=== PATIENT | male | born 1965 | race Caucasian/White ===

== ENCOUNTER 2019-01-15 08:34 | Emergency (ER) | payer BC, SELFPAY ==
[2019-01-15 08:35] VITALS: BP 153/94; PULSE 76; RESP 15; TEMP 36.7; O2SAT 97; BMI 33.7
--- NOTE | 2019-01-15 08:44 | RAD_ITS ---
STUDY: X-RAY CHEST REASON FOR EXAM: Male, 53 years old. Chest pain and night sweats. TECHNIQUE: Single AP portable view of the chest. COMPARISON: None. FINDINGS: EKG electrodes are seen. The lungs are clear and expanded. There is no demonstrated pleural abnormality. Normal size heart. Normal mediastinum and yu. Normal visualized pulmonary arteries. Normal visualized aortic arch and descending thoracic aorta. There are mild degenerative changes of the visualized thoracic spine. Normal visualized ribs, clavicles, and shoulders. There is no demonstrated abnormality of the visualized soft tissue structures of the upper abdomen. RAD/Chest 1 View (Portable) IMPRESSION: Normal x-ray examination of the chest. Electronically Signed: Dread Franz, at 9:09 EDT , Service support ,
--- NOTE | 2019-01-15 08:45 | EKG12_ITS ---
Test Reason : CP Blood Pressure : / mmHG Vent. Rate : 074 BPM Atrial Rate : 074 BPM P-R Int : 158 ms QRS Dur : 086 ms QT Int : 354 ms P-R-T Axes : 034 041 027 degrees QTc Int : 392 ms Normal sinus rhythm with sinus arrhythmia Normal ECG Confirmed by JAIME BRUNSON, SURJIT ([id number]), graphic editor DANI DUFFY ([id number]) on 01/17/2019 10:22:08 A M Referred By: KEVIN/MUNA Confirmed By:EVON SANDOVAL MD
--- NOTE | 2019-01-15 08:46 | ED.VIS.GEN ---
History of Present Illness Chief Complaint: Chest Pain Detail of Chief Complaint: Shortness of breath, night sweats Informant: Patient Onset: Month(s) Narrative: Patient presents with a 1 month history or more of dyspnea on exertion and night sweats. He states he gets occasional chest pain and points to the center of the sternum. He has had some reflux. He recently had a CT scan of the chest. Report shows trace pericardial effusion and atherosclerotic disease of the thoracic aorta and possibly the LAD. He was concerned about these findings and presented to the emergency room. He does have a family history of cardiac disease and states his father had cardiac stents placed about the same age the patient is now. Patient did recently have bronchitis. He was a long-term smoker and quit 2 weeks ago when he got ill. He also admits to being a heavy drinker. Past Medical History - Allergies and Home Meds Allergies/Adverse Reactions: Allergies HAY FEVER Allergy (Uncoded 01/15/19 09:23) Other Primary Care Physician: Gibran Almeida MD [Primary Care Provider] - Prior records reviewed: Yes Past Medical History: - - Reviewed Lives: Spouse/ Significant Other Smoking Status: Former smoker - 2 weeks ago Alcohol: Heavy Review of Systems General: Denies: Chills, Fever Eyes: Denies: Visual changes - bilaterally ENT: Denies: Bilateral ear pain Cardiovascular: Reports: Chest pain. Denies: Palpitations, Heart racing Respiratory: Reports: Dyspnea. Denies: Cough Gastrointestinal: Reports: - - Reflux. Denies: Abdominal pain, Nausea, Vomiting Musculoskeletal: Denies: Back pain, Extremity Pain Skin: Denies: Rash Neurological: Denies: Headache Endocrine: Denies: Polyuria, Polydipsia Hematologic: Denies: Easy bruising Allergy: Denies: Uticaria Physical Exam Vital Signs/Narrative: Vital Signs Temp Pulse Resp BP Pulse Ox 01/15/19 08:35 98.0 F 76 15 153/94 H 97 Inital Vital Signs reviewed: Yes General: Well nourished, Well developed Head: Normocephalic ENT: Moist mucous membranes Cardiovascular: Regular rate, Regular rhythm Respiratory: No distress, CTA bilaterally Abdomen: Soft, Nontender, Hypoactive bowel sounds Extremities: Nontender Skin: Normal color, No rash Neurological: Alert, Oriented x3 Psychological: Normal affect Diagnostic/Tx/Re-eval Impressions Chest X-Ray 01/15/19 08:44 IMPRESSION: Normal x-ray examination of the chest. Electronically Signed: Dread Franz, at 9:09 EDT , Service support , 01/15/19 08:44 Chest 1 View (Portable) [RAD] Stat Laboratory Results 01/15/19 01/15/19 08:50 08:50 WBC 6.7 RBC 5.27 Hgb 16.6 H Hct 48.7 MCV 92.4 MCH 31.5 MCHC 34.1 RDW Std Deviation 42.9 RDW Coeff of Hortensia 12.5 Plt Count 205 MPV 9.6 Immature Gran % (Auto) 0.300 Neut % (Auto) 51.3 Lymph % (Auto) 34.1 [place] % (Auto) 7.4 Eos % (Auto) 5.7 H Baso % (Auto) 1.2 H Absolute Neuts (auto) 3.4 Absolute Lymphs (auto) 2.27 Nucleated RBC % 0 Sodium 139 Potassium 3.9 Chloride 107 Carbon Dioxide 26.0 Anion Gap 6 BUN 18 Creatinine 1.14 Estim Creat Clear Calc 79.15 Est GFR (MDRD) Af Amer 87 Est GFR (MDRD) Non-Af 72 BUN/Creatinine Ratio 15.8 Glucose 124 H Calcium 9.3 Troponin I < 0.015 - EKG Initial EKG Interpretation: Sinus Rhythm - Normal sinus rhythm with 74 bpm. No sign of acute ischemia. - Medical Decision Making Patient is resting comfortably on repeat evaluation. He has no pain currently. I will start the patient on something for reflux. I will speak with his primary care physician to help arrange outpatient stress test. I do not feel that this needs to be performed inpatient. Patient and family voiced understanding and agreement. ED Disposition - Plan for ED Patient: Disposition: Home or Assisted Living Diagnosis: Atypical chest pain Instructions: CHEST PAIN, Uncertain Cause, GERD (Adult) Prescriptions: Omeprazole [Prilosec] 20 mg PO DAILY #30 capsule Referrals: Gibran Almeida MD [Primary Care Provider] - As soon as possible
[2019-01-15 08:54] LABS: Absolute Lymphocyte Count 2.27 X10^3/uL (0.83-4.51); Absolute Neutrophil Count 3.4 X10^3/uL (2.0-7.7); Basophil# 0.08 X10^3/uL; Basophil% 1.2 % (0-1); Eosinophil# 0.38 X10^3/uL; Eosinophils% 5.7 % (0-5); Hematocrit 48.7 % (40-54); Hemoglobin 16.6 g/dL (13.0-16.5); Lymphocyte # 2.27 X10^3/ul (4.0); Lymphocyte % 34.1 % (19-41); Mean Corp Hgb Conc 34.1 g/dL (32-36); Mean Corpuscular Hgb 31.5 pg (27.0-32.0); Mean Corpuscular Volume 92.4 fL (80-94); Mean Platelet Vol. 9.6 fl (6.2-12.0); Monocyte# 0.49 X10^3/uL; Monocyte% 7.4 % (0-10); NRBC Flagged by Analyzer 0 % (0-5); Neutrophil # 3.41 X10^3/uL (2.7-7.7); Neutrophil % 51.3 % (47-70); Platelet Count 205 K/mm3 (150-450); RBC Distribution Width CV 12.5 % (11.6-14.6); RBC Distribution Width SD 42.9 fl (35.1-43.9); Red Blood Count 5.27 M/mm3 (4.6-6.2); White Blood Count 6.7 K/mm3 (4.4-11.0)
[2019-01-15 09:15] LABS: Anion Gap 6 (5-15); BUN 18 mg/dL (7-18); BUN/Creat Ratio 15.8 RATIO (10-20); Calcium,Total 9.3 mg/dL (8.5-10.1); Chloride 107 mmol/L (98-107); Creatinine, Serum 1.14 mg/dL (0.70-1.30); EST Glomerular Filtration Rate 72 mL/min (>60); Est Glom Filt Rate - Afr Amer 87 mL/min (>60); Estimated Creatinine Clearance 79.15 ml/min; Glucose 124 mg/dL (74-106); Potassium 3.9 mmol/L (3.5-5.1); Sodium Level 139 mmol/L (136-145)
[2019-01-15 09:54] VITALS: BP 125/82; PULSE 72; RESP 19; O2SAT 95
== END 2019-01-15 09:55 | disposition home or self-care (01) ==
PROVIDERS: Emergency Provider Emergency Medicine; Family Provider Family Medicine; PCP Family Medicine
DX: R07.89 Other chest pain (principal); Z87.891 Personal history of nicotine dependence
CPT/HCPCS: 71045; 80048; 84484; 85025; 93005; 99285; A4216

== ENCOUNTER 2020-07-09 16:10 | Outpatient (RCR) | payer BC, SELFPAY ==
[2020-07-09] MEDS: COVID-19 VACC, MRNA(PFIZER)/PF 30 MCG/0.3 ML SYRINGE IM (10:11)
[2020-07-30] MEDS: COVID-19 VACC, MRNA(PFIZER)/PF 30 MCG/0.3 ML SYRINGE IM (09:59)
== END 2020-07-09 23:59 ==
LOC: IMMUN 16:10
PROVIDERS: PCP Family Medicine; Referring Provider Family Medicine; Visit Provider Family Medicine
DX: Z23 Encounter for immunization (principal)
CPT/HCPCS: 0001A; 0002A; 91300

== ENCOUNTER 2022-07-11 11:35 | Emergency (ER) | payer OTHER, SELFPAY ==
[2022-07-11 11:36] VITALS: BP 152/86; PULSE 76; RESP 18; TEMP 35.8; O2SAT 98; BMI 37.5
--- NOTE | 2022-07-11 11:55 | EX.ED.DYSGE1 ---
HPI History of Present Illness Chief Complaint: Foreign Body Narrative Narrative: Patient presents with right index finger foreign body and pain. He was seen outpatient and set up for outpatient surgery however apparently was canceled today and he still has pain. He continues to be on antibiotics. The foreign body was x-rayed and it showed up on the finger x-ray. [facility] Medical History (Updated 07/11/22 @ 12:[address] Regan Laguerre MD) Adrenal adenoma Dyspnea on exertion Hyperlipidemia Hypothyroidism Night sweats Social anxiety disorder Home Medications clonazepam 1 mg tablet 1 - 2 tab PO BID PRN PRN Anxiety 01/15/19 [History Last Taken Unknown] coenzyme Q10 100 mg capsule 100 mg PO DAILY 01/15/19 [History Last Taken Unknown] levothyroxine 150 mcg tablet 150 mcg PO DAILY 01/15/19 [History Last Taken Unknown] omeprazole 20 mg capsule,delayed release 20 mg PO DAILY #30 caps 01/15/19 [Rx Last Taken Unknown] rosuvastatin 10 mg tablet 10 mg PO DAILY 01/15/19 [History Last Taken Unknown] fluticasone propionate 50 mcg/actuation nasal spray,suspension (Allergy Relief (fluticasone)) 1 spray intranasal .COMPLEX 03/18/19 [History Last Taken Unknown] Allergy/AdvReac Type Severity Reaction Status Date / Time Environmental Allergies: Allergy NEEDS Verified 07/11/22 11:37 Uncoded FOLLOW-UP [hay fever] Family History (Updated 03/18/19 @ 15:22 by Danay Sánchez) Father , Age 89 from Parkinson's CAD (coronary artery disease) Stented coronary artery, Onset Age: 50 Thyroid disorder Parkinsons disease Mother Breast cancer Hypertension Thyroid disorder Brother Thyroid disorder Sister Thyroid disorder Social History Smoking Status: Never smoker ROS ROS ED ROS Narrative Past medical history: none, tetanus is not up-to-date Medications: Reviewed Social history: Noncontributory Review of systems: Musculoskeletal: As in HPI Skin: As in HPI Neurological: No weakness or paresthesias Hematologic: No easy bleeding or easy bruising EXAM Physical Exam Narrative Exam Narrative: Physical exam General: Patient does not appear in significant distress . Head: Normocephalic, Atraumatic Cardiovascular: Normal distal pulses Extremities: Small punctate wound distal phalanx on the volar side. Normal strength sensation no tenderness over the flexor tendon or any other signs or symptoms of flexor tenosynovitis no erythema or calor Skin: As above Neurological: Normal strength and sensation Const Vital Signs: 07/11/22 11:36 07/11/22 11:48 Temperature 96.5 F L Temperature Source Temporal Pulse Rate 76 Respiratory Rate 18 Respiratory Effort Normal Non-Labored Respiratory Pattern Normal Blood Pressure 152/86 H Blood Pressure Mean 108 Pulse Ox 98 Oxygen Delivery Method Room Air MDM MDM MDM Narrative Medical decision making narrative: I talked to the patient and the . They do want me to proceed to get the foreign body out, see procedure note foreign body was successfully removed. He is to continue his outpatient antibiotics. If anything changes she is to return he understands this. At this time there is no signs or symptoms of deep infection. Procedures Other Procedures Procedure(s): Foreign body removal Verbal consent Foreign body removal from right index finger This a piece of brass patient showed me an outpatient x-ray which demonstrated the foreign body 1% lidocaine about 2 mL were inserted locally I used splinter forceps and was able to remove the foreign body. I did an x-ray afterwards and the foreign body is now gone. Patient tolerated procedure well. Discharge Plan Triage Chief Complaint: Foreign Body ED Provider: Regan Laguerre Dx/Rx/DC Orders Clinical Impression: Finger infection, Foreign body finger Instructions: ED Foreign Body Soft Tissue Prescriptions: No Action fluticasone propionate [Allergy Relief (fluticasone)] 50 mcg/actuation spray,suspension 1 spray INTRANASAL .COMPLEX Rx Instructions: 1 spray INTRANASAL only in summer; clonazepam 1 MG tablet 1 - 2 tab PO BID PRN PRN (Reason: Anxiety) Label Comments: Take one to two tablets twice daily as needed for anxiety.] levothyroxine 150 MCG tablet 150 mcg PO DAILY coenzyme Q10 100 MG capsule 100 mg PO DAILY rosuvastatin 10 MG tablet 10 mg PO DAILY Label Comments: TAKE 1 TABLET EVERY DAY omeprazole 20 MG capsule 20 mg PO DAILY Qty: 30 0RF Primary Care Provider: Gibran Almeida Referrals: Gibran Almeida MD [Primary Care Provider] - 3-5 Days Disposition Disposition: Home, Self Care
--- NOTE | 2022-07-11 12:00 | RAD_ITS ---
INDICATION: FB NEEDS PIECE OF BRASS REMOVED FROM RIGHT INDEX FINGER, HAPPENED June EXAMINATION/TECHNIQUE: X-RAY - RIGHT HAND XR Fingers Min 2 Views 3 VIEWS COMPARISON: None. FINDINGS: SOFT TISSUES: No soft tissue swelling or gas. No radiopaque foreign body. BONES/JOINTS: No acute fracture or subluxation.. Normal alignment. Preservation of the joint space.. No sclerotic or destructive changes observed. RAD/Finger(s) Min 2 Views IMPRESSION: No foreign body identified. Electronically Signed: Nahomi Pierce MD at 12:37 EDT ,
== END 2022-07-11 12:28 | disposition home or self-care (01) ==
PROVIDERS: Emergency Provider Emergency Medicine; PCP Family Medicine; Visit Provider Emergency Medicine
DX: S60.450A Superficial foreign body of right index finger, initial encounter (principal); E78.5 Hyperlipidemia, unspecified; W26.8XXA Contact with other sharp object(s), not elsewhere classified, initial encounter
CPT/HCPCS: 73140; 99283

== ENCOUNTER → 2023-01-11 | Outpatient (CLI) | payer OTHER, SELFPAY ==
--- NOTE | 2023-01-11 06:14 | ECHOCS_ITS ---
Reason For Study: DYSPNEA Procedure This was a 2D Doppler, Color Flow transthoracic echocardiogram. The study was technically difficult. due to body habitus. Contrast injection was performed. Exam performed in department. Left Ventricle Normal LV size. Mild concentric left ventricular hypertrophy. Left ventricular systolic function is normal. The estimated ejection fraction is 55 %. Normal diastology for age. No regional wall motion abnormalities noted. Right Ventricle Normal RV size. Normal systolic function. Atria Normal left atrium. Normal right atrium. Mitral Valve Normal mitral valve. Tricuspid Valve Normal tricuspid valve. Aortic Valve The aortic valve is not well visualized. Pulmonic Valve The pulmonic valve is not well visualized. Great Vessels Normal aortic root. The pulmonary artery is normal size. Normal inferior vena cava. Pericardium/Pleural No pericardial effusion. Medication Diluted definity 2.0ml given slow IV push to enhance endocardial definition. MMode/2D Measurements & Calculations LVIDd: 4.6 cm IVSd: 1.3 cm Ao root diam: 3.2 cm LVIDs: 2.9 cm LVPWd: 1.3 cm RVDd: 4.0 cm FS: 36.1 % LAV(MOD-bp): 53.4 ml LVAd ap4: 38.5 cm2 LVAd ap2: 34.1 cm2 LAV(MOD-bp) Indexed: 21.0 ml/m2 LVLd ap4: 9.2 cm LVLd ap2: 9.3 cm LAV(MOD-sp2): 51.3 ml EDV(MOD-sp4): 133.9 ml EDV(MOD-sp2): 103.6 ml LAV(MOD-sp4): 51.9 ml EDV(sp4-el): 136.6 ml EDV(sp2-el): 105.9 ml LVAs ap4: 22.6 cm2 LVAs ap2: 20.5 cm2 LVLs ap4: 7.4 cm LVLs ap2: 7.7 cm ESV(MOD-sp4): 57.4 ml ESV(MOD-sp2): 45.3 ml ESV(sp4-el): 58.4 ml ESV(sp2-el): 46.4 ml EF(MOD-sp4): 57.1 % EF(MOD-sp2): 56.3 % EF(sp4-el): 57.2 % SV(MOD-sp4): 76.5 ml SV(MOD-sp2): 58.3 ml SV(sp4-el): 78.2 ml LA A4 area: 17.7 cm2 LA dimension(2D): 4.0 cm RA A4 area: 15.6 cm2 Time Measurements MV dec time: 0.15 sec Doppler Measurements & Calculations MV E max luis e: 75.6 cm/sec Lat Peak E' Luis E: 12.3 cm/sec Med Peak E' Luis E: 8.8 cm/sec MV A max luis e: 59.3 cm/sec E/E' lat: 6.2 E/E' med: 8.6 MV E/A: 1.3 Ao V2 max: 116.6 cm/sec LV V1 max: 103.9 cm/sec PA V2 max: 101.3 cm/sec Ao max P.4 mmHg LV V1 max P.3 mmHg PA V2 mean: 63.3 cm/sec Ao V2 mean: 85.9 cm/sec LV V1 mean P.1 mmHg Ao mean P.3 mmHg LV V1 mean: 66.9 cm/sec Ao V2 VTI: 27.3 cm LV V1 VTI: 16.2 cm AV (velocity ratio): 0.59 ECHO/Echo Complete W/ Contrast Interpretation Summary Normal LV size. Left ventricular systolic function is normal. The estimated ejection fraction is 55 %. Mild concentric left ventricular hypertrophy. Normal diastology for age. Contrast injection was performed. Ordering Physician: Carlo Betancur Referring Physician: Gibran Almeida Performed By: Tiffanie Rae, JABARI, RVT
--- NOTE | 2023-01-12 15:37 | STRESSREP ---
Stress Test Report Exercise myocardial perfusion stress test. 57-year-old man with a history of shortness of breath Stress protocol: Resting EKG demonstrates normal sinus rhythm with a rate of 63 bpm resting blood pressure is 124/80 mmHg. The patient exercised according to the regular Minor protocol for a total duration of 7 minutes attaining a maximum heart rate of 160 bpm which was 96% of maximum predicted heart rate; the maximum workload was 10.1 metabolic equivalents. At rest there were no ST or T wave changes noted to suggest ischemia and at peak exercise upsloping ST changes only were noted which did not meet the criteria for ischemia. No clinical angina was noted the test was terminated due to the target heart rate being achieved/fatigue. The peak blood pressure was 178/90 mmHg. Rate-pressure product was 25,200. Myocardial perfusion protocol. 15.0 mCi of technetium 99m sestamibi was injected at rest. The patient exercised according to regular Minor protocol for total duration of 7 minutes and at peak exercise 45.0 mCi of technetium 99m sestamibi was injected stress images were obtained stress and rest images were reconstructed in comparing the short axis vertical long and horizontal long axis. Gated images were also obtained. Perfusion SPECT analysis: Review of the stress images demonstrate normal uptake of tracer noted in all areas of the myocardium. The resting images similarly demonstrate normal uptake of tracer noted in all areas of the myocardium. No areas of reversibility are noted to suggest ischemia no previous infarct was noted. Gated SPECT analysis: The gated ejection fraction is 66%. Conclusion: Normal exercise myocardial perfusion stress test at a high workload Preserved ejection fraction.
== END | disposition home or self-care (01) ==
PROVIDERS: PCP Family Medicine; Referring Provider Internal Medicine Cardiovascular Disease; Visit Provider Internal Medicine Cardiovascular Disease
DX: R06.09 Other forms of dyspnea (principal)
CPT/HCPCS: 78452; 93017; 93306; A9500; Q9957; A4216; C8929

== ENCOUNTER 2023-11-15 07:38 | Emergency (ER) | payer OTHER, SELFPAY ==
[2023-11-15 07:38] VITALS: BP 133/95; PULSE 105; RESP 18; TEMP 36.6; O2SAT 94; BMI 41.0
[2023-11-15 07:47] VITALS: O2SAT 95
--- NOTE | 2023-11-15 07:59 | ED.VIS.DYS ---
HPI History of Present Illness Chief Complaint: Cough Informant: patient and spouse/S.O. Narrative Narrative: 58-year-old male presenting to the emergency room with a chief complaint of coughing up blood. Patient states that he woke early this morning took his thyroid medicine. About 15 minutes later he got into a coughing fit and coughed up some phlegm that appeared to have blood in it. She is unsure if it was his thyroid pill remnants or phlegm. He has been a long-term smoker quit smoking about 3 weeks ago. He denies any DVT PE risk factors. Patient denies any blood thinners currently. No recent illnesses. [facility] Medical History Essential hypertension Hypogonadism ROBYN on CPAP Social anxiety disorder Night sweats Adrenal adenoma Dyspnea on exertion Hyperlipidemia Hypothyroidism Home Medications ?Medication ?Instructions ?Recorded ?Last Taken ?Type clonazepam 1 mg tablet 1 - 2 tab PO BID PRN PRN Anxiety 01/15/19 Unknown History coenzyme Q10 100 mg capsule 100 mg PO DAILY 01/15/19 Unknown History omeprazole 20 mg capsule,delayed 20 mg PO DAILY #30 caps 01/15/19 Unknown Rx release fluoxetine 20 mg capsule 20 mg PO DAILY 11/22/22 Unknown History levothyroxine 175 mcg tablet 175 mcg PO DAILY 11/22/22 Unknown History lisinopril 20 mg tablet 20 mg PO DAILY 11/22/22 Unknown History mometasone 50 mcg/actuation nasal 2 spray intranasal DAILY 11/22/22 Unknown History spray rosuvastatin 20 mg tablet 20 mg PO DAILY 11/22/22 Unknown History testosterone cypionate 200 mg/mL 100 mg IM QWEEK 11/22/22 Unknown History intramuscular oil Allergy/AdvReac Type Severity Reaction Status Date / Time Environmental Allergies: Allergy NEEDS Verified 11/15/23 07:38 Uncoded (hay fever) FOLLOW-UP Family History Father , Age 89 from Parkinson's CAD (coronary artery disease) Stented coronary artery, Onset Age: 50 Thyroid disorder Parkinsons disease Mother Breast cancer Hypertension Thyroid disorder Brother Thyroid disorder Sister Thyroid disorder Surgical History History of esophagogastroduodenoscopy (EGD) (~09/27/22) History of colonoscopy (~09/27/22) Social History Smoking Status: Former smoker alcohol intake: current substance use type: former substance user, crack/cocaine and methamphetamine caffeine: Yes ROS ROS ED Constitutional Constitutional ED: Denies chills or weight loss Eyes Eyes: Denies change in vision or diplopia ENT ENT ED: Denies ear pain, rhinorrhea or sore throat Cardiovascular Cardiovascular: Denies chest pain, orthopnea, palpitations or racing heartbeat Respiratory/Chest Respiratory/Chest: Reports cough and other Details: Hemoptysis ; Denies dyspnea or orthopnea Gastrointestinal Gastrointestinal: Denies abdominal pain, diarrhea, nausea or vomiting Genitourinary Genitourinary ED: Denies dysuria, hematuria or urinary frequency Musculoskeletal Musculoskeletal: Denies arthralgias or myalgias Integumentary Denies abscess or rash Neurologic Neurologic: Denies headache(s) or weakness Psychiatric Psychiatric: Denies anxiety, depression, suicidal ideation or suicidal thoughts Endocrine Endocrinology: Denies polydipsia, polyphagia or polyuria Allergic/Immunologic Allergic/Immunologic ED: Denies mouth swelling, tongue swelling or urticaria EXAM Physical Exam Const Vital Signs: 11/15/23 07:38 11/15/23 07:47 Temperature 98 F Temperature Source Temporal Pulse Rate 105 H Respiratory Rate 18 Respiratory Effort Normal Respiratory Depth Normal Respiratory Pattern Normal Blood Pressure 133/95 H Blood Pressure Mean 107 Pulse Ox 94 Oxygen Delivery Method Room Air Room Air Positive well nourished and well developed General Appearance ED: well developed HEENT Reports normocephalic, head/scalp atraumatic and moist mucous membranes Eyes PERRL and EOMs intact bilaterally Neck no lymphadenopathy, supple and no JVD Resp normal respiratory effort and clear to auscultation bilaterally Cardio regular rate, regular rhythm and no murmurs Rate: tachycardic GI normal to inspection, nondistended, normoactive bowel sounds and non-tender Palpation: soft Back/Spine no CVA tenderness and normal ROM Extremity normal to inspection General Extremety ED: Negative for edema General Extremity: Negative for edema Neuro oriented x3 and CN's II-XII intact bilaterally Sensorium / Orientation: alert Motor Exam: strength 5/5 throughout Psych mental status grossly normal Mood & Affect: Negative for depressed or tearful Skin no rashes or lesions noted and no wounds MDM MDM MDM Narrative Medical decision making narrative: Differential diagnosis includes malignancy small vessel rupture in the lungs esophageal tear pneumonia bronchitis expectorant and pill fragments Basic blood work shows a hemoglobin of 18.3 creatinine 1.18. CTA of the chest demonstrates no obvious pneumonia malignancy or vascular abnormalities. Patient has been stable here in the department. He is in a sinus rhythm and heart rate is down to around 91. I believe the patient can be discharged home I will not be able to tell him if this was a small vessel rupture versus a Carmella-Ta tear from retching during the coughing or pill fragments. He understands this. He was noted to have adenoma on right adrenal gland. He states he has had this before and will follow-up with his doctor to compare the size. History & Record Review Discussion w/independent historian: Patient and Family Lab Data Labs: Laboratory Results - last 24 hr 11/15/23 08:14 WBC 8.2 RBC 6.00 Hgb 18.3 H* Hct 53.7 MCV 89.5 MCH 30.5 MCHC 34.1 RDW Std Deviation 41.7 RDW Coeff of Hortensia 12.8 Plt Count 209 MPV 10.1 Immature Gran % (Auto) 0.700 Neut % (Auto) 47.5 Lymph % (Auto) 38.6 [place] % (Auto) 9.8 Eos % (Auto) 2.3 Baso % (Auto) 1.1 H Absolute Neuts (auto) 3.9 Absolute Lymphs (auto) 3.15 Nucleated RBC % 0 Differential Comment COMMENT Diff Path Review May foll Sodium 136 Potassium 4.1 Chloride 106 Carbon Dioxide 24.0 Anion Gap 6 BUN 16 Creatinine 1.18 Estim Creat Clear Calc 94.56 Est GFR (MDRD) Af Amer 82 Est GFR (MDRD) Non-Af 68 BUN/Creatinine Ratio 13.6 Glucose 103 Calcium 9.6 Radiography Diagnostic Testing: Clinical Impression(s) from Imaging Studies Chest CTA 11/15/23 08:00 IMPRESSION: No evidence of pulmonary embolism. Minimal linear atelectasis at the lung bases. Findings suggestive of a 1.7 cm adenoma in the right adrenal gland. Electronically Signed: Dread Franz MD at 10:25 EDT , Discharge Plan Triage Chief Complaint: Cough ED Provider: Sven Renee Dx/Rx/DC Orders Clinical Impression: Cough with hemoptysis, Adenoma Instructions: ED Hemoptysis Prescriptions: No Action levothyroxine 175 mcg tablet 175 mcg PO DAILY Patient Comments: Take 1 tablet by mouth daily before breakfast. lisinopril 20 mg tablet 20 mg PO DAILY Patient Comments: Take 1 tablet by mouth once daily. mometasone 50 mcg/actuation spray,non-aerosol 2 spray intranasal DAILY Patient Comments: Use 2 Sprays in each nostril once daily. testosterone cypionate 200 mg/mL oil 100 mg IM QWEEK Patient Comments: Inject 0.5 mL intramuscularly one time a week for 90 days. fluoxetine 20 mg capsule 20 mg PO DAILY Patient Comments: Take 1 capsule by mouth once daily. rosuvastatin 20 mg tablet 20 mg PO DAILY Patient Comments: TAKE 1 TABLET BY MOUTH ONCE DAILY clonazepam 1 MG tablet 1 - 2 tab PO BID PRN PRN (Reason: Anxiety) Patient Comments: Take one to two tablets twice daily as needed for anxiety.] coenzyme Q10 100 MG capsule 100 mg PO DAILY omeprazole 20 MG capsule 20 mg PO DAILY Qty: 30 0RF Primary Care Provider: Gibran Almeida Referrals: Gibran Almeida MD [Primary Care Provider] - Keep Jarred appointment Activity Restrictions/Additional Instructions: As mentioned today you have had an adenoma of the right adrenal gland. It is measuring 1.7 cm today. I do not have access to [facility] records at this time so would recommend you discussing this with your doctor and comparing it to the size of the finding on your previous imaging. Print Language: Belarusian Disposition Disposition: Home, Self Care
--- NOTE | 2023-11-15 08:00 | CT_ITS ---
STUDY: CTA CHEST REASON FOR EXAM: Male, 58 years old. Hemoptysis RADIATION DOSAGE (If Supplied By Facility): CTDIvol = ( 13.85 ) mGy, DLP = ( 607.93 ) mGycm TECHNIQUE: The examination was performed with the intravenous administration of IV 100mL Isovue-370. Post-processing of the angiographic images was performed, with multiplanar reformation and 3D reconstruction. Individualized dose optimization techniques were used for this CT. COMPARISON: None. FINDINGS: Normal enhancement of the main pulmonary artery and right and left pulmonary arteries. Normal enhancement of the bilateral peripheral pulmonary arteries. There is no demonstrated pulmonary embolism. Normal thoracic aorta and visualized great vessels. There is no demonstrated aortic dissection. Normal heart and pericardium. Normal mediastinum. Normal hilar regions. Normal visualized trachea and bronchi. The lungs are well expanded. Minimal degree of linear bibasilar atelectasis. Normal pleura. Normal chest wall structures. There are degenerative changes of thoracic spine. There is a 1.7 cm low-density nodule in the right adrenal gland suggestive of adenoma. Fatty infiltration of the liver. CT/CTA Chest W/WO Contrast IMPRESSION: No evidence of pulmonary embolism. Minimal linear atelectasis at the lung bases. Findings suggestive of a 1.7 cm adenoma in the right adrenal gland. Electronically Signed: Dread Franz MD at 10:25 EDT ,
[2023-11-15 08:21] LABS: Absolute Lymphocyte Count 3.15 X10^3/uL (0.83-4.51); Absolute Neutrophil Count 3.9 X10^3/uL (2.0-7.7); Basophil# 0.09 X10^3/uL; Basophil% 1.1 % (0-1); Eosinophil# 0.19 X10^3/uL; Eosinophils% 2.3 % (0-5); Hematocrit 53.7 % (40-54); Lymphocyte # 3.15 X10^3/ul (0.83-4.51); Lymphocyte % 38.6 % (19-41); Mean Corp Hgb Conc 34.1 g/dL (32-36); Mean Corpuscular Hgb 30.5 pg (27.0-32.0); Mean Corpuscular Volume 89.5 fL (80-94); Mean Platelet Vol. 10.1 fl (6.2-12.0); Monocyte% 9.8 % (0-10); NRBC Flagged by Analyzer 0 % (0-5); Neutrophil # 3.87 X10^3/uL (2.7-7.7); Neutrophil % 47.5 % (47-70); Platelet Count 209 K/mm3 (150-450); RBC Distribution Width CV 12.8 % (11.6-14.6); RBC Distribution Width SD 41.7 fl (35.1-43.9); White Blood Count 8.2 K/mm3 (4.4-11.0)
[2023-11-15 08:30] LABS: Hemoglobin 18.3 g/dL (13.0-16.5)
[2023-11-15 08:31] LABS: Differential Indicated SCAN CRITERIA MET
[2023-11-15 08:32] LABS: Anion Gap 6 (5-15); BUN 16 mg/dL (7-18); BUN/Creat Ratio 13.6 RATIO (10-20); Calcium,Total 9.6 mg/dL (8.5-10.1); Chloride 106 mmol/L (98-107); Creatinine, Serum 1.18 mg/dL (0.70-1.30); EST Glomerular Filtration Rate 68 mL/min (>60); Est Glom Filt Rate - Afr Amer 82 mL/min (>60); Estimated Creatinine Clearance 94.56 ml/min; Glucose 103 mg/dL (74-106); Potassium 4.1 mmol/L (3.5-5.1); Sodium Level 136 mmol/L (136-145)
[2023-11-15 10:55] VITALS: BP 125/72; PULSE 82; RESP 18; TEMP 36.8; O2SAT 96
[2023-11-16 11:48] LABS: Pathologist Review Reviewed
== END 2023-11-15 10:59 | disposition home or self-care (01) ==
PROVIDERS: Emergency Provider Emergency Medicine; PCP Family Medicine; Visit Provider Emergency Medicine
DX: R04.2 Hemoptysis (principal); E78.5 Hyperlipidemia, unspecified; I10 Essential (primary) hypertension; R05.9 Cough, unspecified; Z87.891 Personal history of nicotine dependence; D35.01 Benign neoplasm of right adrenal gland
CPT/HCPCS: 71275; 80048; 85025; 99284; Q9967

== ENCOUNTER → 2024-02-05 | Outpatient (CLI) | payer OTHER, SELFPAY ==
--- NOTE | 2024-02-05 09:21 | RAD_ITS ---
INDICATION: fall EXAMINATION/TECHNIQUE: X-RAY - XR Spine Lumbar 2 or 3 Views COMPARISON: No relevant prior comparison study available FINDINGS: VERTEBRAE: Preserved vertebral body height. No fracture. No spondylolisthesis. Preservation of the normal lumbar lordosis. There is multilevel endplate spondylosis. DISCS: There is multilevel degenerative disc disease. INCLUDED ABDOMEN: Included bowel gas pattern is non-obstructive. There are vascular calcifications. RAD/Lumbar Spine 2 or 3 Views IMPRESSION: Multilevel degenerative changes. Atherosclerosis. Electronically Signed: Nahomi Pierce MD at 9:51 EDT ,
== END | disposition home or self-care (01) ==
LOC: MTRAD 09:21
PROVIDERS: PCP Family Medicine; Referring Provider Physician Assistant; Visit Provider Physician Assistant
DX: M47.816 Spondylosis without myelopathy or radiculopathy, lumbar region (principal); W19.XXXA Unspecified fall, initial encounter
CPT/HCPCS: 72100

== ENCOUNTER → 2024-05-21 | Outpatient (CLI) | payer BC, SELFPAY ==
--- NOTE | 2024-05-21 15:26 | MRI_ITS ---
PROCEDURE: LOWER EXT JOINT ONLY (ROUTINE) REASON FOR EXAM: Twisted right knee; pain. Rule out meniscal tear. TECHNIQUE: MRI of the left knee without contrast. COMPARISON: Left knee series of 04/18/2024. FINDINGS No significant joint effusion is seen. No Braden's or popliteal cyst is noted. No acute osseous signal change is seen. Cruciate and collateral ligaments appear intact. Visualized extensor tendons appear intact. Moderate degenerative changes are seen at the patellofemoral articulation, overall, but moderate to severe articular cartilage thinning seen at the posterior patella, most prominent at the apex. No significant articular cartilage thinning or defect is seen at the medial and lateral compartments. No meniscal tear is evident. MRI/Lower Ext Joint Only (Routine) IMPRESSION: 1. Prominent degenerative changes seen of the patellofemoral articulation. 2. No meniscal tear is seen. Reading Location: [id number]
--- NOTE | 2024-05-21 15:26 | MRI_ITS ---
PROCEDURE: SPINE LUMBAR (ROUTINE) REASON FOR EXAM: Low back pain, with left lower extremity radiculopathy. TECHNIQUE: Noncontrast lumbar spine MRI. COMPARISON: Plain film imaging dated 03/13/2024 FINDINGS: Vertebrae: Lumbar vertebral body heights are preserved. Vertebral hemangioma seen within the L5 verte bral body measuring at least 2.2 cm. No acute lumbar spine fractures or dislocations are identified. Alignment: Normal. No spondylolisthesis. Conus Medullaris: Posterior to the L1 level. Distal cord is within normal limits. Cauda equina appe ars intact. Partially imaged left renal cyst measures 1.9 cm. Remaining paraspinal soft tissues appear intact. Disc levels as follows: T12-L1: Evaluated on sagittal imaging only. Minimal disc bulge without significant central spinal or neural foraminal stenosis bilaterally L1-2: No disc herniation or central spinal stenosis. Mild facet arthrosis. No significant neural fo raminal stenosis bilaterally L2-3: No disc herniation or central spinal stenosis. Mild facet arthrosis. No significant neural fo raminal stenosis bilaterally L3-4: Minimal central disc bulge. No central spinal stenosis. Mild facet arthrosis. No significant neural foraminal stenosis bilaterally L4-5: Mild broad-based disc bulge. Facet arthrosis bilaterally. No significant central spinal or ne ural foraminal stenosis bilaterally L5-S1: Mild broad-based disc bulge. Facet arthrosis bilaterally. No central spinal or neural forami nal stenosis bilaterally Sacrum: Visualized upper sacrum and SI joints are unremarkable. MRI/Spine Lumbar (Routine) IMPRESSION: 1. At the L3-4, L4-5 and L5-S1 levels, mild to minimal disc bulges without sign ificant central spinal or neural foraminal stenosis bilaterally, as described. 2. Partially imaged left renal cyst measures up to 1.9 cm. 3. Additional findings, as detailed above Reading Location[facility]
== END | disposition home or self-care (01) ==
LOC: MRI 15:14
PROVIDERS: PCP Family Medicine; Referring Provider Student in an Organized Health Care Education/Training Program; Visit Provider Student in an Organized Health Care Education/Training Program
DX: M25.562 Pain in left knee (principal); M54.16 Radiculopathy, lumbar region
CPT/HCPCS: 72148; 73721

== ENCOUNTER 2024-10-21 08:00 | Outpatient (RCR) | payer BC, SELFPAY ==
--- NOTE | 2024-10-21 09:00 | BH.SGPN.GN ---
Behaviors/Verbalizations/Mental Status: [] ?Eye contact is good. Motor activity is appropriate. Appearance is casual. Speech is Appropriate. Mood is anxious. Affect is congruent. Thoughts are linear and logical. No evidence of psychosis. Reviewed daily check in sheet and no reports of suicidal ideations or intent. Client Response/Progress/Benefit: [] ?Pt was an active participant in group discussions. Pt's first day in IOP tx and discussed struggling with social anxiety and depression. Reports that he has tried to push it down or numb himself most of his life but it is no longer working. States wanting to learn skills to better cope while in IOP tx. Benefited from group support, encouragement, and feedback. Will continue in IOP to prevent decompensation, promote mood stability, and increase healthy coping repertoire. Narrative Note: []
--- NOTE | 2024-10-21 10:10 | BH.SGPN.GN ---
Behaviors/Verbalizations/Mental Status: [] Pt alert and oriented, casually dressed and groomed. Eye contact good. Motor activity appropriate. Speech within normal limits. Affect congruent, mood content, anxious. Thoughts linear, logical, no signs of hallucinations or delusions. Client Response/Progress/Benefit: [] Pt an active participant in group discussions on defining conflict (internal/external) and possible benefits to conflict. Attentive during psychoeducation on conflict styles (avoidant, accommodating, competing, cooperative) and engaged during group discussion in which peers identified the benefits and consequences to each conflict style. Pt identified that pt tends to be avoidant and that he ?doesn?t like conflict at all.? Benefited from increased awareness of the impact of conflict styles in mental health. Will continue in IOP tx to prevent decompensation, improve daily functioning, and reduce negative thinking patterns. ? Narrative Note: []
--- NOTE | 2024-10-21 11:15 | BH.SGPN.GN ---
Behaviors/Verbalizations/Mental Status: []Client alert and oriented, casually dressed and groomed. Eye contact good. Motor activity appropriate. Speech within normal limits. Affect congruent, mood euthymic. Thoughts linear, logical, no signs of hallucinations or delusions. Client Response/Progress/Benefit: [] Pt engaged in session AEB contributing to discussion and engaging in small group. Attentive during discussion on strategies for more effectively managing conflict in personal life. Pt noted current conflict resolution style uses the most is avoidant and can at times become competing. Pt connected impact conflict styles can have on him. Pt participated in small group for activity and did well practicing how to manage conflict scenarios. Pt given handout on fair fighting rules and how to identify common conflict barriers. Pt indicated what needs improvement in conflict for them. Appeared to benefit from gaining strategies to help Pt better manage conflict. Will continue IOP tx improve distress tolerance, increase healthy coping, and prevent decompensation.
--- NOTE | 2024-10-23 08:50 | BH.NA_ITS ---
Physical Data Vital Signs Pulse Rate: 78 Blood Pressure: 171/95 Height/Weight Height: 1.78 m Weight:: 125.645 kg Weight in Pounds: 277.0 lbs Current Medication Compliance Medication Compliance Do you take your medication as prescribed?: Yes Nutritional History Appetite Nutritional Instructions: Describe your appetite:: Good Additional nutritional information:: Client denies recent change in appetite or weight. Functional Assessment Sleep Pattern Describe any problems with sleeping: Client states he sleeps about 10 hours per day. Sensory/Communication Assess Vision Problems Do you have any vision problems?: Glasses Communication Problems Do you have difficulty understanding what people are saying?: No Medical Problems/History Cardiac Conditions Cardiovascular: Hypertension and Hyperlipidemia Respiratory Conditions Respiratory: Other (See comments) (ROBYN- uses cpap) Metabolic Conditions Metabolic: Hypothyroidism and Other (See comments) (stable adrenal adenoma) Gastrointestinal Conditions Gastrointestinal: Other (See comments) (Hx diverticulitis. Currently states he has been having some rectal bleeding with BM's, water in toilet is bright red and wiping clots- states he is either going to the ER or urgent care today. Denies episodes of dizziness or syncope with this bleeding.) Musculoskeletal Conditions Musculoskeletal: Other (See comments) (DDD in lumbar area) Pain Assessment Do you have acute or chronic pain?: Yes (back, knees) Family History Family History Father CAD (coronary artery disease) Stented coronary artery, Onset Age: 50 Thyroid disorder Parkinsons disease Mother Breast cancer Hypertension Thyroid disorder Brother Thyroid disorder Sister Thyroid disorder Surgical History Surgical History Have you had any surgeries? If so, list type and date:: No Substance Abuse Substance Abuse Please describe substance abuse in the last 30 days:: Client states he has been drinking alcohol daily for about the past 10 years. Client states during the week, he usually has 4 shots of vodka after work. Client states on the weekend, he has at least one day where he binge drinks vodka. Client states he has been a cigarette smoker off and on since the age of 29. Client states he currently smokes about 1/2 ppd during the week and 1 ppd on the weekends. Client has a history of using cocaine monthly but none currently, and states he used meth for about 6 months in his early 40's. Client states he currently uses some marijuana daily by vaping and a tincture. Client states he drinks 1 cup of coffee per day. Mental Status Summary Mental Status Significant Findings/Observations on Appearance and Mood:: Client is alert and oriented x 4. Client is casually groomed. Client is cooperative with assessment. Client makes good eye contact. Client's voice has normal rate and volume. Client has an appropriate affect. Client makes logical associations and has normal processing. Client denies delusions/hallucinations. Client denies SI. Suicide Assessment Suicidal Ideation Are you currently or have you been suicidal in the past?: No Suicidal Intentional Rating Scale (SIRS): No suicidal thoughts (past or present) Physician Notification Past Psychiatric History MH Treatment Hx Past Psychiatric Medications:: Zoloft, Paxil, Effexor, Wellbutrin, Lexapro, Buspar, Xanax Age of first mental health symptoms: Client states he has felt he has had anxiety since age 25, but states he only first took medication for mental health in his mid 40's. Describe (age, circumstance, etc) any past hospitalizations: None. Current providers for mental health treatment (counselor, psychiatrist, rn field case manager, etc.): None. Fall Risk Assessment Age Age: Less than 60 Mental Status Mental Status: Willing & able to ask for assistance when needed Physical Status Physical Status: No problems Impairments Impairments: None Elimination Elimination: Continent AND independent Gait or Balance Gait or Balance: Walks independently Hx of Falls History of falls in the past 6 months: No known history Medications/Substances Psychotropics:: Antidepressants and Anxiolytics (e.g. benzodiazepines) Others:: Antihypertensives Medications/substances used within the past 24 hours or ordered to administer: 3 or more of the medications/substances listed above Total Score Total Points:: 2 RN Summary of Impressions Impressions Recommendations Impressions: Psychiatric Issues: Major depressive disorder. Social anxiety disorder. Impression: General Medical Conditions: Client states he has been having bright red rectal bleeding with clots for the past week- denies dizziness/syncope- states he is going to the ER or urgent care today. Level of Care How do the client's current symptoms and functional deficits support need for this level of care?: Client was referred to [facility] by his and a coworker due to anxiety and depression. Client states he has recently been having panic attacks, crying spells, anhedonia, and has found it hard to get out of bed to do daily activities. Client states he has had anxiety for a long time around going to work and takes Klonopin usually three times per day and has been on it for about 10 years. Client states a stressor is also caring for his , stating she sometimes has depressive episodes where she is not able to function. 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 Client reports daily alcohol use for the last 10 years, stating A vodka cranberry is like my treat to myself when I get home from work. Denies SI. IOP will promote gains and prevent further decompensation while providing social support and skills training.
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
[2024-10-23 09:49] VITALS: BP 171/95; PULSE 78
--- NOTE | 2024-10-23 10:17 | BH.DR.ITP ---
Initial Treatment Plan Patient Information Visit Information: ADMISSION DATE: EXPECTED LOS: 6-8 weeks Diagnoses:: MDD, social anxiety, etoh use Problems/Symptoms Problem #1:: MDD Symptom:: decreased mood, poor concentration, had been having low energy and crying spells with some apathy towards living Problem #2:: social anxiety Symptom:: severe avoidance behaviors resulting in patient needing to retire early and is missed a lot of work, gets physical symptoms including vomiting when he has to go to work
--- NOTE | 2024-10-27 09:05 | BH.SGPN.GN ---
Behaviors/Verbalizations/Mental Status: [] Eye contact is good. Motor activity is restless. Appearance is casual. Speech is Appropriate. Mood is anxious. Affect is congurent. Thoughts are linear and logical. No evidence of psychosis. Reviewed daily check in sheet and no reports of suicidal ideations or intent. Client Response/Progress/Benefit: [] Pt participated at times. Attentive. Pt reports significant anxiety. Shared with the group that the impact his anxiety has had on his overall functioning at home and work. Fear of panic attacks in social places had led to significant isolation and avoidance. Isolated for most of the holiday weekend. Despite struggles his is hopeful since starting IOP. No progress noted. Benefited from group support, encouragement, and feedback. Will continue in IOP to prevent decompensation, stabilize anxiety, increase healthy coping, and improve functioning to return to work Narrative Note: []
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
--- NOTE | 2024-10-27 11:15 | BH.SGPN.GN ---
Behaviors/Verbalizations/Mental Status: [] Eye contact is good. Motor activity is appropriate. Appearance is casual. Speech is Appropriate. Mood is anxious. Affect is congurent. Thoughts are linear and logical. No evidence of psychosis. Client Response/Progress/Benefit: [] Pt was an engaged participant AEB listening attentively to others and providing input throughout group. Pt along with group members, identified strategies to manage inappropriate guilt. Identified a personal example of inappropriate guilt as ?blame self for kids not coming around? Pt wants to work on combatting inappropriate guilt by acknowledge it and address it.? Pt seemed to benefit from learning about strategies to manage appropriate and inappropriate guilt. Pt to continue IOP tx to prevent decompensation, stabilize mood, and improve functioning to return to work. Narrative Note: []
--- NOTE | 2024-10-28 09:00 | BH.SGPN.GN ---
Behaviors/Verbalizations/Mental Status: [] Client alert and oriented, casual appearance. Eye contact good. Motor activity appropriate. Speech within normal limits. Affect congruent, mood depressed. Thoughts linear, logical, no signs of hallucinations or delusions. Reviewed client's symptom tracker, no risk for suicidal ideation, plan, or intent. Client Response/Progress/Benefit: [] Client responded well to session AEB listening to others and sharing thoughts/feelings. Client reported mental positive was being able to use opposite action and remind himself of the benefits to get to group this morning. Reports feeling more tired and in physical pain this morning and struggled with getting out of bed. Additional win noted as selling two items on [employer] in order to help supplement finances while he is off work. Stressor identified as ongoing medical concerns and not wanting to go back to the doctor. Did well to recognize the importance of caring for his physical health in order to support mental wellness as well. Appeared to benefit from support from peers. Will continue IOP tx to reinforce healthy coping skills, challenge distortions, and prevent decompensation. Narrative Note: []
--- NOTE | 2024-10-28 11:10 | BH.SGPN.GN ---
Behaviors/Verbalizations/Mental Status: []Pt alert and oriented, casually dressed and groomed. Eye contact good. Motor activity appropriate. Speech within normal limits. Affect congruent, mood anxious. Thoughts linear, logical, no signs of hallucinations or delusions. Client Response/Progress/Benefit: [] Pt was an active participant during activity and discussion. Pt did well to remain attentive and participate as group worked on identifying characteristics and benefits of adopting a growth mindset. Worked with fellow participants in reframing the example fixed thoughts into growth mindset thoughts. Pt worked on changing own fixed thought. Pt?s reframed thought was ?I?m a good worker and a good father.? Pt attentive during discussion about different strategies that can help with fostering a growth mindset. Pt appeared to benefit from challenging own thoughts and engaging in the activity. Pt will continue IOP tx to reduce use of substances, increase distress tolerance skills, and improve daily functioning. ? Narrative Note: []
--- NOTE | 2024-10-28 12:07 | BH.MDN ---
Multi-Disciplinary Note Note 45-min Individual: Time Started:: 10:22 Date: 10/28/24 Purpose of session/treatment goals addressed:: To gather information on pt's history, tx goals, and mental health symptoms. Eye Contact:: Good Motor Activity:: Appropriate Appearance:: Casual Speech:: Appropriate Mood:: Anxious and Depressed Affect:: Congruent Thoughts:: Linear, Logical and No evidence of hallucinations/delusions noted Staff Interventions:: motivational interviewing, CBT techniques, rapport building, strengths perspective, goal setting and taught coping skills Client Response:: Pt responded well to session, open to meeting with therapist. Pt stated he was initially somewhat skeptical about IOP because he has significant social anxiety; however, noted that he is finding the group environment more supportive and inviting than expected. Described feeling welcomed by fellow group participants and is finding it helpful to know he is not alone in his mental health struggles. Went on to describe lifelong difficulties with anxiety and has more begin experiencing depressive sx in the last 10 years following the of his father. Reports this was traumatic as his father had been in a care home with Parkinson?s disease and pt felt he had been mistreated by staff during that time. Pt reports that he will not put his mother who is 97 in a care home as a result and is her primary caregiver which is a major stressor. Pt?s is also on disability for her physical and mental health needs, resulting in pt completing many of the caregiving responsibilities for her as well. Expressed feeling overwhelmed by trying to balance caregiving for his and mother while also maintaining full-time employment at [employer]. Reports he has been on FMLA several times in the past few years due to caregiving becoming too demanding. Shared that his intermittent leave has resulted in tensions amongst his co-workers. Shared beliefs he is being treated poorly by fellow employees as a result and this has led to various workplace conflicts in the last few months. Currently on FMLA while in IOP tx and is considering early residential in December. Pt noted that he feels so stressed and anxious by work that he often vomits before going in and relies heavily on clonazepam to manage his anxiety in the workplace. After work pt shared feeling so stressed that the only way he has managed to ?take the edge off? is consuming multiple alcoholic beverages, ~4-6 vodka and cranberry. Receptive of counseling on alcohol cessation and reviewed with pt the barriers substance reliance can have on treatment progress and sx management. Pt agreeable to reduce consumption. Pt receptive to learning more coping skills and he shared his biggest goal is learning how to better manage his sx of anxiety and depression so that he can ?feel happy again? and eventually return to working at least part-time. Pt also receptive to working on improving overall self-care. Risks/Concerns:: Pt denies any suicidal ideations, plan, or intent to this therapist. Pt does admit to ongoing alcohol use and does see this as somewhat problematic. This ongoing use could be a barrier to pt's ability to gain and use healthy coping skills. Progress Toward Goals/Plan:: Pt just started IOP tx, so no progress to document. Pt admits he was reluctant about IOP as pt does not enjoy groups, but pt was receptive to trying. Pt reports his symptoms have been impacting all areas of his life and he is hopeful that the program will improve his overall sx management and functioning. Pt has numerous psychosocial stressors also impacting functioning- occupational stress, caregiving responsibilities, lack of support, ongoing addictive behaviors, and physical health issues. Pt will continue IOP tx to prevent decompensation, improve daily functioning, and gain healthy coping skills. Time Stopped:: 11:03
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
--- NOTE | 2024-10-28 12:09 | BH.MTP ---
Master Treatment Plan Patient Information Program Physician:: Dr. Yoselin Magana Primary Therapist:: OLAYINKA Cameron Psychiatric Diagnoses Psychiatric Diagnoses:: MDD (major depressive disorder), recurrent severe, without psychosis; social anxiety disorder; alcohol abuse disorder Diagnosis Code(s):: F33.2 Estimated LOS Estimated LOS (in weeks):: 6 Problem/Goal #1 Problem/Goal #1 Stated Goal:: Client will reduce depressive symptoms, worthlessness, lack of concentration, negative thoughts, and crying spells AEB self-report and decreased outcome scores on the depression scales of the DMS-5 crossing cutting scales. Description of Barriers: Struggles with consistent stability, substance abuse, managing caregiving responsibilities, and unhealthy coping skills. Functional Impact: Osmar is a 59y/o male who presented to [facility] IOP program for further evaluation and treatment of anxiety and depression. Patient reports many years of depression and anxiety that have progressively increased to the point where is affecting his functioning and led to taking FMLA from work. Goal Relevant Strengths/Supports: Supportive family and employer; appears motivated to address mental health struggles. Objectives Objective #1: Stated Objective: Client will identify 2-3 cognitive distortions and negative self-talk messages that lead to mood dysregulation and learn 2-3 ways to manage these thoughts to improve mood stability. Interventions: Through individual and group counseling will assist client in identifying, challenging, and replacing dysfunctional thoughts/cognitive distortions with positive, more realistic thoughts. Therapist will use CBT and DBT techniques to help client gain awareness of thinking errors and learn how to more effectively handle negative thoughts that reinforce unhealthy coping skills. Discharge Criteria: Will identify 2-3 commonly used cognitive distortions and negative self-talk as well as 2-3 ways to manage/challenge. Target Date: 12/05/24 Review Date: 11/13/24 Objective #2: Stated Objective: ?Client will learn and utilize 2-3 healthy coping strategies to manage depressive symptoms as shown by reduced DSM-5 cross-cutting symptom measure score. Interventions: ?Therapist will help client identify triggers and warning signs of depression and will teach client various coping skills to manage client?s symptoms and give client tangible resources to use to regulate emotions. Discharge Criteria: Pt will be able to identify and effectively apply 2-3 coping skills for depression. Pt will also see a reduction in DSM-5 scores. Target Date: 12/05/24 Review Date: 11/13/24 Problem/Goal #2 Problem/Goal #2 Stated Goal:: Client will increase emotional regulation and reduce intensity and duration of anxiety symptom AEB by self-report and decrease of scores on the anxiety domain of the DSM-5 cross-cutting scales. Description of Barriers: Struggles with consistent stability, substance abuse, managing caregiving responsibilities, and unhealthy coping skills. Functional Impact: Osmar is a 59y/o male who presented to [facility] IOP program for further evaluation and treatment of anxiety and depression. Patient reports many years of depression and anxiety that have progressively increased to the point where is affecting his functioning and led to taking FMLA from work. Goal Relevant Strengths/Supports: Supportive family and employer; appears motivated to address mental health struggles. Objectives Objective #1: Stated Objective: Client will identify 5 physical warning signs, 2-3 anger/anxiety triggers, and 5 ways to calm and manage anxiety/anger. Pt will develop an anger/anxiety scale indicating degrees of anger/anxiety from 0-10 and physiological signals of his level of anger/anxiety Plan is become aware of escalating anger/anxiety and implement skill early to avoid escalation. Interventions: Through individual and group counseling will education the client on calming techniques as part of a tailored strategy for reducing chronic and acute physiological tension that accompanies the escalation of his anxiety/angry feelings Discharge Criteria: Able to identify 5 physiological warning signs, 2-3 anger/anxiety buttons, and 5 ways to calm. Target Date: 12/05/24 Review Date: 11/13/24 Objective #2: Stated Objective: ?Client will reduce avoidance behaviors that reinforce anxiety by setting 1-2 small exposure goals a week to increase socialization, increase mastery, and reduce anxiety over time. Interventions: ?Therapist will help client create a fear-ladder that will act as a guide in confronting anxiety-producing situations. The fear-ladder will go from least anxiety-producing to most anxiety-producing so client can build confidence. Therapist will help client set SMART goals and challenge barriers. Discharge Criteria: Pt will successfully have increased social exposure by accomplishing weekly fear ladder goals Target Date: 12/05/24 Review Date: 11/13/24
--- NOTE | 2024-10-31 09:05 | BH.SGPN.GN ---
Behaviors/Verbalizations/Mental Status: [] Eye contact is good. Motor activity is restless. Appearance is casual. Speech is Appropriate. Mood is anxious. Affect is congruent. Thoughts are linear and logical. No evidence of psychosis. Reviewed daily check in sheet and no reports of suicidal ideations or intent. Client Response/Progress/Benefit: [] Pt participated at times during the group discussions. Attentive. Daily symptom tracker notes 5/5 for anxiety and 4.5 for depression. SI-1 IN -1. Pt states ? major anxiety and panic this morning?. Shared panic attack with profuse sweating. Unable to identify trigger however after discussing with the group it appears to have been triggered with thought of leaving the house. Pt struggles with??leaving his comfort zone which is his house which has resulted in missing work and social events. Praised for his ability to work though anxiety and not let it keep him from attending IOP. Pt shared that IOP has become a ?safe zone? b/c of the support of being around others struggling with anxiety. Progress noted. Benefited from group support, encouragement, and feedback. Will continue in IOP to prevent decompensation, stabilize anxiety, and improve functioning to return to work. Narrative Note: []
--- NOTE | 2024-10-31 11:15 | BH.SGPN.GN ---
Behaviors/Verbalizations/Mental Status: []Pt alert and oriented, casually dressed and groomed. Eye contact good. Motor activity appropriate. Speech within normal limits. Affect congruent, mood anxious and depressed. Thoughts linear, logical, no signs of hallucinations or delusions. Client Response/Progress/Benefit: [] Pt responded well to session, engaged and contributing. Pt discussed with group things that contribute to mental wellness life. With peers, pt discussed things that would sabotage one's mental health wellness. Pt identified things pt personally does to sabotage as avoidance, not processing his emotions, and numbing with substances. Pt attentive during psychoeducation on ways to reduce self-sabotage and pt selected continuing to work on communicating his feelings?as the skill that could help pt reduce self-sabotaging behaviors. Pt appeared to benefit from learning skills and gaining awareness of self-sabotaging behaviors. Pt will continue IOP tx to prevent decompensation, improve distress tolerance skills, and combat negative self-talk. Narrative Note: []
--- NOTE | 2024-10-31 15:00 | BH.SGPN.GN ---
Behaviors/Verbalizations/Mental Status: [] Pt alert and oriented, casually dressed and groomed. Eye contact good. Motor activity appropriate. Speech within normal limits. Mood: anxious. Affect: congruent. Thoughts linear, logical, no signs of hallucinations or delusions. Client Response/Progress/Benefit: [] Pt was an active participate during group discussions. Attentive during psychoeducation on self-sabotage and its impact on mental health. Worked with peers to identify reasons individuals perform self-sabotage behaviors (fear of rejection, learned behavior, coping mechanism, fear of failure, insecurity, and feeling like they are not worthy). Pt identified the forms of self-sabotage that impact their mental health the most which included (isolation, perfectionism, lashing out, procrastination, poor communication and people-pleasing). Seemed to benefit from gaining awareness about the self-sabotage. Pt to continue IOP tx to prevent decompensation, decrease anxiety, and improve functioing to return to work. Narrative Note: []
--- NOTE | 2024-11-06 09:00 | BH.SGPN.GN ---
Behaviors/Verbalizations/Mental Status: [] Client alert and oriented, casual appearance. Eye contact good. Motor activity appropriate. Speech within normal limits. Affect congruent, mood anxious and irritable. Thoughts linear, logical, no signs of hallucinations or delusions. Reviewed client's symptom tracker, no risk for suicidal ideation, plan, or intent. Client Response/Progress/Benefit: [] Client responded well to session AEB listening to others and sharing thoughts/feelings. Client reported mental positive as getting up and coming here despite having some struggle this morning. Client noted additional month of positive as choosing to cut back on his drinking quite a bit because he recognizes it will be beneficial for him. Client stated current stressor as his work denying his short term disability, which he stated he is trying to appeal this decision. Client identified feeling agitated and anxious. appeared to benefit from support from peers. Will continue IOP tx to improve distress tolerance, decrease use of alcohol, and prevent decompensation. Narrative Note: []
--- NOTE | 2024-11-06 10:10 | BH.SGPN.GN ---
Behaviors/Verbalizations/Mental Status: [] Client alert and oriented, casually dressed and groomed. Eye contact good. Motor activity appropriate. Speech within normal limits. Affect congruent, mood euthymic. Thoughts linear, logical, no signs of hallucinations or delusions. Client Response/Progress/Benefit: [] Client was an active participant in activity and taking notes during group discussion. Attentive during psychoeducation on coping skills, why people use unhealthy coping skills, and how to replace unhealthy coping skills. Benefited from increased understanding of unhealthy coping skills and the need for developing healthy interna and external coping skills. Client will continue IOP tx to increase emotional regulation skills, increase self care, and improve daily functioning. Narrative Note: []
--- NOTE | 2024-11-06 11:10 | BH.SGPN.GN ---
Behaviors/Verbalizations/Mental Status: [] Client alert and oriented, casually dressed and groomed. Eye contact good. Motor activity appropriate. Speech within normal limits. Affect congruent, mood euthymic. Thoughts linear, logical, no signs of hallucinations or delusions. Client Response/Progress/Benefit: [] Client responded well to session AEB taking notes and providing some input and examples throughout. Group discussed the different categories of coping skills which included distraction, emotional release, grounding, self-love, and thought challenging. Client created a coping skill menu identifying various skills to try in each category. Client?s coping skill menu included: intimacy, screaming (emtional release), mindfulness, positive thoughts, and a pro and con list. Appeared to benefit from increasing repertoire of healthy coping skills. Client will continue IOP tx to improve daily functioning and prevent decompensation. Narrative Note: []
--- NOTE | 2024-11-07 10:15 | BH.SGPN.GN ---
Behaviors/Verbalizations/Mental Status: []Pt alert and oriented, neatly dressed and groomed. Eye contact good. Motor activity appropriate. Speech within normal limits. Affect congruent, mood anxious. Thoughts linear, logical, no signs of hallucinations or delusions. Client Response/Progress/Benefit: [] Pt participated during small group discussions. Attentive during psychoeducation about defense mechanisms. Showed engagement during small group discussions and helped group identify which defense mechanisms were maladaptive, adaptive, or ?somewhere in the messina.? Pt worked with small group on identifying how each defense mechanism can impact mental health and gave examples. Pt stated he has gained awareness to his use of suppression, projection, humor, and denial.?Pt reported benefits from identifying examples of different defense mechanisms and normalizing why they are used. Seemed to benefit from gaining awareness about the different defense mechanisms. Pt to continue IOP tx to promote use of healthy coping skills, reduce avoidance behaviors, and increase distress tolerance skills. Narrative Note: []
--- NOTE | 2024-11-07 11:15 | BH.SGPN.GN ---
Behaviors/Verbalizations/Mental Status: []Pt alert and oriented, casually dressed and groomed. Eye contact good. Motor activity appropriate. Speech within normal limits. Affect congruent, mood anxious, content. Thoughts linear, logical, no signs of hallucinations or delusions. Client Response/Progress/Benefit: [] Pt responded well to session, participating in activity and small group discussion. Group reviewed the rest of the defense mechanisms and discussed how these are adaptive, maladaptive, or somewhere in the messina. Pt's defense mechanisms included suppression, projection, and denial. Shared that these reinforce isolation and prevents the problem from actually being addressed. Pt listened to sports health [employer] membership advisors teach different skills to help pt?s cope with or change their defense mechanisms. Pt appeared to benefit from gaining insight to the different defense mechanisms and learning coping skills. Shared wanting to begin practicing more awareness of when he is using these defense mechanisms and use opposite action to prevent from doing so. Pt will continue IOP tx to prevent decompensation, improve distress tolerance skills, and increase self-care. Narrative Note: []
--- NOTE | 2024-11-07 15:14 | BH.MDN_ITS ---
Multi-Disciplinary Note Note 45-min Individual: Time Started:: 09:19 Date: 11/07/24 Purpose of session/treatment goals addressed:: Purpose of session was to address current stressors and discuss strategies to help cope with these stressors. Additional goal to begin identifying factors impacting anxiety levels. Eye Contact:: Good Motor Activity:: Appropriate Appearance:: Casual Speech:: Appropriate Mood:: Anxious and Dysthymic Affect:: Congruent Thoughts:: Linear, Logical and No evidence of hallucinations/delusions noted Staff Interventions:: psychoeducation on: (effects of alcohol on anxiety), CBT techniques, strengths perspective and goal setting Client Response:: Pt reports feeling agitated and anxious today as he is struggling with being approved for short-term disability, citing a disagreement between the union and human resources. Pt reports trying to remain ?cautiously optimistic? as he was informed by his union that they did receive the needed paperwork to appeal his denial and reopen the case. Some increased anxiety regar ding finances as he has been told the disability compensation process is often behind. Did reach out to his sister who agreed to give pt a temporary loan. Pt has also been cleaning out his garage and selling old memorabilia he no longer wants to decrease financial burden. Did report that this has been bringing up bittersweet old memories, but he is doing well to remind himself not to stay stuck on the negative old memories and focus on the positive pieces he can carry with him. Continues to endorse significant anxiety in the morning with no relief. After some discussion regarding morning and nighttime routines, pt discussed continuing to consume significant amounts of alcohol to reduce stress/relax in the evenings. Therapist provided psychoeducation on the Rebound effect as the body metabolizes alcohol, which can result in worsening anxiety in the morning. Pt reports he did not realize that his nighttime alcohol use could cause increased anxiety the next morning. Does report drinking 3 vodka cranberries a night, which is a reduction from prior reports of 4-6. Counseling on importance of continuing to reduce numbing behaviors as he works to improve consistent application of anxiety management skills. Pt self-reports not practicing skills he is learning outside of tx as he does not remember to do so. Receptive of considering putting a reminder in his phone to practice at least one grounding skill during the day when not anxious to improve ability to apply in the moment. Risks/Concerns:: Denies SI, plan, or intent as of this date. Future oriented and protective factors noted. Progress Toward Goals/Plan:: Limited progress noted. Pt self-reports struggling to actively apply skills he is learning in IOP tx and continues to rely on substances to manage sx of anxiety. Pt reports finding the program to be helpful but struggles with motivation to utilize skills learned outside of the tx environment. Pt often struggles with seeing where he has control in regard to his stressors and would benefit from working on locus of control. Recommended continued IOP tx to improve mood stability, anxiety management, and prevent decompensation. Time Stopped:: 09:52
--- NOTE | 2024-11-11 09:00 | BH.SGPN.GN ---
Behaviors/Verbalizations/Mental Status: [] ?Eye contact is good. Motor activity is appropriate. Appearance is casual. Speech is Appropriate. Mood is content, anxious. Affect is congruent. Thoughts are linear and logical. No evidence of psychosis. Reviewed daily check in sheet and no reports of suicidal ideations or intent. Client Response/Progress/Benefit: [] ?Pt was an active participant in group discussions. Attentive. Did well to identify 2 mental health wins including following through with goal of mowing yesterday and expressed feeling accomplished as a result. Additional win noted as reaching out to his adult son about his own mental health and receiving tx, which pt notes encouraged his son to seek tx for his anxiety as well. Stressor noted as ongoing issues with getting compensated for his short-term disability. Responded well to group support. Progress noted. Benefited from group support, encouragement, and feedback. Will continue in IOP to prevent decompensation, promote mood stability, and increase healthy coping consistency. Narrative Note: []
--- NOTE | 2024-11-11 10:10 | BH.SGPN.GN ---
Behaviors/Verbalizations/Mental Status: [] Client alert and oriented, casual appearance. Eye contact good. Motor activity appropriate. Speech within normal limits. Affect congruent, mood anxious. Thoughts linear, logical, no signs of hallucinations or delusions. Client Response/Progress/Benefit: [] Pt receptive to session AEB contributing to small group discussion, as well as listening attentively to others, and taking notes. Worked with group to brainstorm the positive and negative aspects of stress on physical and mental health. Group did well to identify the benefits of stress as well as the impact of distress on performance, relationships, and mental health. 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 Client stated when his job are overfill's he tends to internalize his feelings which then leads to an eventual blowup. Pt seemed to benefit from increased awareness of current stressors and impact stress has on mental health. Pt will continue IOP tx to improve distress tolerance, challenge distortions, and prevent decompensation. Narrative Note: []
--- NOTE | 2024-11-11 11:10 | BH.SGPN.GN ---
Behaviors/Verbalizations/Mental Status: []Eye contact is good. Motor activity is appropriate. Appearance is casual. Speech is Appropriate. Mood is euthymic and anxious. Affect is congruent. Thoughts are linear and logical. No evidence of psychosis. Client Response/Progress/Benefit: [] Pt was an attentive participant in group discussions and actively engaged during experiential activity, doing well to regulate their emotions throughout the activity and work with peers. Attentive during psychoeducation on the 4 A's (Avoid, adapt, alter, accept) of coping with stress. Shared that they would benefit most from practicing walking away from people that are toxic instead of trying to ?fight with them to change their mind.? Was able to identify the connection between the experiential activity and utilization of stress management skills. Benefited from increased awareness of stress management strategies. Pt will continue IOP to increase consistent use of healthy coping skills, reduce avoidance through substance use, and improve self-confidence. Narrative Note: []
--- NOTE | 2024-11-18 09:00 | BH.COMM_ITS ---
Communication Note Communication with Client Communication Note: Pt cancelled IOP this AM for the 3rd straight time. Called and spoke with pt who reports significant anxiety I've been up all night due to financial stressors and work issues. Pt's short-term disability has failed to pay and he suspects they will continue to deny. We received paperwork from [employer] disability however it is difficult to complete due to pt's lack of attendance. He has not been to IOP in over a week. Pt has cancelled 6 IOP days and attended 8 since admission. Inconsistent attendance. His anxiety and unhealthy coping skills continue to impact his functioning. His employer is offering early jail and he is planning on accepting, however they are working through the payout. Informed him that any further call offs or no shows could result in discharge. He understands that he needs to attend so that staff can assess mental health and gather further information to complete the requested paperwork. Appears as if his anxiety, unhealthy coping, and stress are keeping him from attending treatment for these very same issues. He is schedule to meet with program psychiatrist on 11/20/24.
--- NOTE | 2024-11-19 15:22 | BH.DS_ITS ---
Discharge Summary Demographics Date of Admission:: 10/21/24 Discharge Date: 11/18/24 Presenting Problems at Admission:: Osmar is a 59y/o male who presented to [facility] program for further evaluation and treatment of anxiety and depression. Patient reports many years of depression and anxiety that have progressively increased to the point where is affecting his functioning and led to taking FMLA from work. Discharge Diagnoses:: MDD (major depressive disorder), recurrent severe, without psychosis, social anxiety disorder, alcohol abuse Reason for Discharge:: Pt would like to discharge from [facility] as pt has chosen to pursue early [facility] and therefore will no longer have the insurance needed to cover IOP tx. Pt reccommended to continue with outpatient therapy and psychiatry; however was not in attendance for 3 sessions leading up to IOP d/c and therefore was not provided with referral resources. Treatment Progress During Treatment & Response: Limited progress as pt only attended [facility] for 4 weeks but was inconsistent in attendance weeks; however did not attend his last week of treatment due to a variety of factors. Pt did well individually and he reported benefitting from talking to people at [facility]. Pt did however self- report struggling to actively apply skills learned in individual or group sessions to his daily life and reported difficulties completing homework due to motivation. Pt additionally struggled with reliance on self-medication to manage his mental health sx; which likely exasperated them instead. Issues Still to be Addressed:: Pt can benefit from ongoing therapy to process PTSD, improve distress tolerance, and promte substance use reduction. Pt can also benefit from getting back into social activities and connecting with sober social supports. Discharge Recommendations/Instructions:: Pt will continue outpatient therapy though was unable to provide refarral resources. Pt will continue with Dr. Figueroa for ongoing medication management. Discharge Handout
== END 2024-11-18 14:24 | disposition home or self-care (01) ==
LOC: BHIOP 08:00
PROVIDERS: PCP Family Medicine; Referring Provider Internal Medicine; Visit Provider Internal Medicine
DX: F33.2 Major depressive disorder, recurrent severe without psychotic features (principal); F41.8 Other specified anxiety disorders; F10.10 Alcohol abuse, uncomplicated
CPT/HCPCS: S9480; 90834; 90853

== ENCOUNTER 2024-10-23 10:44 | Emergency (ER) | payer BC, SELFPAY ==
[2024-10-23 10:45] VITALS: BP 147/82; PULSE 74; RESP 14; TEMP 36.2; O2SAT 98; BMI 39.8
[2024-10-23 11:46] LABS: Hematocrit 51.2 % (40-54); Hemoglobin 17.3 g/dL (13.0-16.5); Immature Granulocytes Count 0.100 X10^3/uL (0.0-0.0); Mean Corp Hgb Conc 33.8 g/dL (32-36); Mean Corpuscular Volume 93.6 fL (80-94); Mean Platelet Vol. 10.0 fl (6.2-12.0); NRBC Flagged by Analyzer 0 % (0-5); Platelet Count 196 K/mm3 (150-450); RBC Distribution Width CV 13.8 % (11.6-14.6); RBC Distribution Width SD 47.8 fl (35.1-43.9); Red Blood Count 5.47 M/mm3 (4.6-6.2); White Blood Count 10.2 K/mm3 (4.4-11.0)
[2024-10-23 12:07] LABS: Partial Thromboplast Time 23.1 Seconds (24.1-36.2); Prothrombin Time (Protime)PT. 12.9 SECONDS (11.7-14.9)
[2024-10-23 12:24] LABS: Lipase 35 U/L (13-75)
[2024-10-23 12:38] LABS: AST(SGOT) 27 U/L (<=37); Alanine Aminotransfer ALT/SGPT 29 U/L (<=46); Albumin, Serum 4.1 g/dL (3.5-5.0); Alkaline Phosphatase 65 U/L (40-129); Anion Gap 12 (5-15); BUN 21 mg/dL (4-19); BUN/Creat Ratio 22.0 RATIO (10-20); Calcium,Total 9.5 mg/dL (7.6-11.0); Carbon Dioxide 20.8 mmol/L (21.0-32.0); Chloride 105 mmol/L (98-108); Estimated Creatinine Clearance 115.52 ml/min (50-250); Globulin 2.6 g/dL (2.2-4.2); Glucose 93 mg/dL (70-99); Potassium 4.3 mmol/L (3.3-5.1)
[2024-10-23 13:10] VITALS: BP 138/83; PULSE 84; RESP 16; TEMP 37.2; O2SAT 97
== END 2024-10-23 14:03 | disposition home or self-care (01) ==
PROVIDERS: Emergency Provider Emergency Medicine; PCP Family Medicine; Visit Provider Emergency Medicine
DX: K62.5 Hemorrhage of anus and rectum (principal); K64.4 Residual hemorrhoidal skin tags; F10.10 Alcohol abuse, uncomplicated; I10 Essential (primary) hypertension; E66.9 Obesity, unspecified; E78.5 Hyperlipidemia, unspecified; E03.9 Hypothyroidism, unspecified; F41.9 Anxiety disorder, unspecified; G47.33 Obstructive sleep apnea (adult) (pediatric); F17.210 Nicotine dependence, cigarettes, uncomplicated; Z79.82 Long term (current) use of aspirin; Z86.0100 Personal history of colon polyps, unspecified; Z79.890 Hormone replacement therapy; Z79.899 Other long term (current) drug therapy
CPT/HCPCS: 80053; 83690; 85025; 85610; 85730; 99283; A4216